=== PATIENT | male | born 1955 | race Caucasian/White ===

== ENCOUNTER 2017-06-13 13:00 | Inpatient (IN) | payer BC ==
[~2017-06-13] VITALS: Ht 180.3 cm; Wt 97.1 kg
[~2017-06-13 13:00] MED LIST: ASPIR 8181 MG PO; ASPIRIN325 MG PO; ATORVASTATIN CA10 M1 PO; BAY PO; BET80 PO; CAR30 PO; CAR60 PO; COZAAR25 MG PO; DILTIAZEM30 M1 PO; HYDROCHLOROTH12.5 M2 PO; LIPI10 PO; SOTALOL HCL80 MG PO; XARELTO20 M1 PO
[2017-06-13 14:51] LABS: BASOPHIL % 1.2 % (0-2); PLATELET COUNT 249 x10^3mcL (130-400); RED CELL DISTRIBUTION WIDTH 13.7 % (11.5-14.5)
[2017-06-13 15:19] LABS: ALBUMIN 3.5 g/dL (3.4-5.0); BILIRUBIN TOTAL 0.6 mg/dL (0.20-1.00); CALCIUM 9.5 mg/dL (8.5-10.1); CARBON DIOXIDE 25.9 mmol/L (21-32); CREATININE SERUM 1.5 mg/dL (0.7-1.3); MAGNESIUM 1.8 mg/dL (1.8-2.4); T4(THYROXINE) 5.6 ug/dL (4.7-13.3)
[2017-06-13 15:35] LABS: microscopic required? NO
[2017-06-13 16:02] LABS: UA SPECIFIC GRAVITY 1.015 (1.005-1.035); urine erythrocyte NEGATIVE (NEGATIVE)
[2017-06-13 16:19] LABS: AMPHETAMINE QUAL UR NONE DETECTED (NEG <=1000)
[2017-06-13 17:09] LABS: CHOLESTEROL/HDL RATIO 3.8; PHOSPHOROUS 4.7 mg/dL (2.5-4.9)
[2017-06-13 19:05] VITALS: BP 96/62
[2017-06-13 20:39] VITALS: BP 115/69; BP 115/9
[2017-06-13 21:14] VITALS: BP 97/55
[2017-06-13 22:17] VITALS: BP 103/65
[2017-06-14] VITALS (11 sets, daily range): BP systolic 87–116; BP diastolic 59–74
[2017-06-14 06:26] LABS: BASOPHIL % 1.1 % (0-2); PLATELET COUNT 199 x10^3mcL (130-400); RED CELL DISTRIBUTION WIDTH 13.9 % (11.5-14.5)
[2017-06-14 06:40] LABS: CALCIUM 8.5 mg/dL (8.5-10.1); CARBON DIOXIDE 28.2 mmol/L (21-32); CREATININE SERUM 1.6 mg/dL (0.7-1.3); MAGNESIUM 1.8 mg/dL (1.8-2.4); PHOSPHOROUS 4.4 mg/dL (2.5-4.9); POTASSIUM SERUM 4.4 mmol/L (3.5-5.1)
[2017-06-15] VITALS (11 sets, daily range): BP systolic 98–125; BP diastolic 54–88; Ht 180.3 cm; Wt 97.1 kg
[2017-06-15 06:52] LABS: CALCIUM 7.9 mg/dL (8.5-10.1); CREATININE SERUM 1.4 mg/dL (0.7-1.3); POTASSIUM SERUM 4.6 mmol/L (3.5-5.1)
[2017-06-15] MEDS ORDERED: METOPROLOL TART25 M1 PO (18:50)
[2017-06-16 04:05] LABS: CALCIUM 7.9 mg/dL (8.5-10.1); CARBON DIOXIDE 22.8 mmol/L (21-32); CREATININE SERUM 1.3 mg/dL (0.7-1.3)
[2017-06-16 06:32] VITALS: BP 126/83
[2017-06-16] MEDS ORDERED: CAR60 PO (08:53)
[2017-06-16] MEDS ORDERED: COR200 PO (08:53)
[2017-06-16 09:24] VITALS: BP 126/83
== END 2017-06-16 09:43 | disposition short-term general hospital (02) | DRG 280 ==
LOC: ED 13:00 → DU 15:54
PROVIDERS: Emergency Medicine; Internal Medicine Cardiovascular Disease; ADMIT Family Medicine
PROC: B2111ZZ Fluoroscopy of Multiple Coronary Arteries using Low Osmolar Contrast (ICD-10-PCS; 2017-06-15)
PROC: B2151ZZ Fluoroscopy of Left Heart using Low Osmolar Contrast (ICD-10-PCS; 2017-06-15)
PROC: 4A023N7 Measurement of Cardiac Sampling and Pressure, Left Heart, Percutaneous Approach (ICD-10-PCS; principal; 2017-06-15 15:00)
DX: I21.4 Non-ST elevation (NSTEMI) myocardial infarction (principal); I50.43 Acute on chronic combined systolic (congestive) and diastolic (congestive) heart failure; E87.0 Hyperosmolality and hypernatremia; I13.0 Hypertensive heart and chronic kidney disease with heart failure and stage 1 through stage 4 chronic kidney disease, or unspecified chronic kidney disease; I48.2 Chronic atrial fibrillation; E78.5 Hyperlipidemia, unspecified; F17.210 Nicotine dependence, cigarettes, uncomplicated; Z68.30 Body mass index [BMI] 30.0-30.9, adult; E87.8 Other disorders of electrolyte and fluid balance, not elsewhere classified; E11.22 Type 2 diabetes mellitus with diabetic chronic kidney disease; N18.3 Chronic kidney disease, stage 3 (moderate); Z82.49 Family history of ischemic heart disease and other diseases of the circulatory system; Z80.9 Family history of malignant neoplasm, unspecified
CPT/HCPCS: CLHCL; 82962; 83880; 99406; C1769; C1887; C1894; J1160; J1644; J2001; J2250; J3010; J3490; J7030; Q0092; Q0163; Q9967

== ENCOUNTER 2018-02-06 08:35 | Emergency (ER) | payer BC ==
[~2018-02-06] VITALS: Ht 177.8 cm; Wt 96.6 kg
[~2018-02-06 08:35] MED LIST changes: +COR200 PO; +METOPROLOL TART25 M1 PO
[2018-02-06 08:38] VITALS: Ht 177.8 cm; Wt 96.6 kg
[2018-02-06 09:14] LABS: BASOPHIL % 0.4 % (0-2); PLATELET COUNT 186 x10^3mcL (130-400); RED CELL DISTRIBUTION WIDTH 12.6 % (11.5-14.5)
[2018-02-06 09:21] LABS: CALCIUM 8.8 mg/dL (8.5-10.1); CREATININE SERUM 1.7 mg/dL (0.7-1.3); POTASSIUM SERUM 3.7 mmol/L (3.5-5.1)
[2018-02-06 09:25] LABS: BILIRUBIN TOTAL 1.13 mg/dL (0.20-1.00); TOTAL PROTEIN, SERUM 7.4 g/dL (6.4-8.2)
[2018-02-06 09:26] LABS: ALBUMIN 3.3 g/dL (3.4-5.0)
[2018-02-06 10:14] VITALS: BP 100/66
== END 2018-02-06 10:14 | disposition short-term general hospital (02) ==
LOC: ED 08:35
PROVIDERS: Emergency Medicine
DX: I10 Essential (primary) hypertension (principal); E78.5 Hyperlipidemia, unspecified
CPT/HCPCS: 36415; 83880; Q0092